=== PATIENT | male | born 1975 | race Caucasian/White ===

== ENCOUNTER 2021-03-13 19:54 | Observation (INO) | payer MEDICARE, OTHER ==
[~2021-03-13] VITALS: Ht 182.9 cm; Wt 112.5 kg
[2021-03-13 23:26] LABS: HEMOGLOBIN 16.1 gm/dl (14.0-17.5); RED BLOOD COUNT 5.16 M/UL (4.20-5.50); WHITE BLOOD COUNT 16.9 K/UL (4.5-11.0)
[2021-03-14] MEDS ORDERED: GABAPENTIN600 MG PO (12:26)
[2021-03-14] MEDS ORDERED: OXYCODONE-ACET1 EACH PO (12:27)
[2021-03-14] MEDS ORDERED: LISINOPRIL-HCT1 EAC2 PO (12:28)
[2021-03-14] MEDS ORDERED: GLUCOPHAGE 500500 MG PO (12:30)
[2021-03-14 14:27] LABS: BUN/CREATININE RATIO 11 (0-10)
--- NOTE | 2021-03-14 18:10 | NUR ---
PATIENT NOTED TO HAVE MODERATE SWELLING AT IV SITE UPPON ARRIVAL TO UNIT. UNABLE TO GET AHOLD OF ER NURSE BONIFACIO AFTER MULTIPLE ATTEMPTS TO FIND OUT WHICH MEDICATION WAS GIVEN LAST. WARM COMPRESS APPLIED AND IV PULLED OUT. PATIENT DENIES ANY PAIN. NEUROVASCULAR CHECKS WNL ON AFFECTED EXTREMITY. WILL CONTINUE TO MONITOR.
[2021-03-15 05:53] LABS: HEMOGLOBIN 14.7 gm/dl (14.0-17.5); RED BLOOD COUNT 5.05 M/UL (4.20-5.50)
[2021-03-15 05:54] LABS: WHITE BLOOD COUNT 11.3 K/UL (4.5-11.0)
[2021-03-15 06:14] LABS: BUN/CREATININE RATIO 17 (0-10)
[2021-03-15 12:13] LABS: ANTI-CENTROMERE B ANTIBODIES <0.2 AI (0.0-0.9); ANTI-DNA (DS) AB QN 2 IU/mL (0-9); ANTI-JO-1 <0.2 AI (0.0-0.9); ANTICHROMATIN ANTIBODIES <0.2 AI (0.0-0.9); ANTIRIBOSOMAL P ANTIBODIES <0.2 AI (0.0-0.9); ANTISCLERODERMA-70 ANTIBODIES <0.2 AI (0.0-0.9); RHEUMATOID ARTHRITIS FACTOR <10.0 IU/mL (<14.0); RNP ANTIBODIES <0.2 AI (0.0-0.9); SJOGREN'S ANTI-SS-A <0.2 AI (0.0-0.9); SJOGREN'S ANTI-SS-B <0.2 AI (0.0-0.9); SMITH ANTIBODIES <0.2 AI (0.0-0.9); SMITH/RNP ANTIBODIES <0.2 AI (0.0-0.9)
[2021-03-15] MEDS ORDERED: PREDNISONE 20 M20 MG PO (13:25)
[2021-03-15] MEDS ORDERED: COZAAR 25MG TAB25 MG PO (13:25)
== END 2021-03-15 16:06 | disposition home or self-care (01) ==
LOC: ER1 19:54 → CDU 03-14 04:24 → MED SURG 4 03-14 17:54
PROVIDERS: Internal Medicine Infectious Disease; Physician Assistant; ADMIT Emergency Medicine
DX: M10.062 Idiopathic gout, left knee (principal); M25.462 Effusion, left knee; E11.9 Type 2 diabetes mellitus without complications; I10 Essential (primary) hypertension; G89.4 Chronic pain syndrome; Z20.822 Contact with and (suspected) exposure to COVID-19; Z79.84 Long term (current) use of oral hypoglycemic drugs; Z79.899 Other long term (current) drug therapy
CPT/HCPCS: 36415; 73564; 73700; 80048; 80053; 80202; 83516; 83605; 84550; 85025; 85379; 85610; 85652; 85730; 86140; 86431; 87040; 96365; 96366; 96372; 96375; 96376; 99285; G0378; J1100; J1650; J2543; J3370; J7070; U0002